=== PATIENT | female | born 1985 | race Caucasian/White ===

== ENCOUNTER 2019-08-04 13:38 | Inpatient (IN) ==
--- NOTE | 2019-08-03 10:51 | PAT Medication Instructions ---
Medication Instructions Date of Service August 03, 2019 Home Medications acetaminophen [Tylenol] 650 mg PO UD PRN diphenhydramine HCl [Benadryl] 25 mg PO HS PRN vit-iron fum-folic ac [ Vitamin] 1 tab PO HS valacyclovir [Valtrex] 500 mg PO HS Take evening before surgery acetaminophen [Tylenol] 650 mg PO UD PRN (if needed) diphenhydramine HCl [Benadryl] 25 mg PO HS PRN vit-iron fum-folic ac [ Vitamin] 1 tab PO HS valacyclovir [Valtrex] 500 mg PO HS THEN NOTHING TO EAT OR DRINK AFTER MIDNIGHT Other Notes If you have any questions please call us at [phone] or [phone] or [phone] or [phone]
--- NOTE | 2019-08-03 11:19 | Anesthesiology Consultation ---
Date of Service August 03, 2019 Assessment & Plan (1) Encounter for pre-operative examination: PLEASE REVIEW PLAN IN PATIENT'S CHART. COVID testing not completed prior to surgery. Patient was initially scheduled to have C/S at later date but was moved up to Wednesday 08/02. Seen in PAT to have test on 08/02. Test will not be resulted in time for C/S on Tuesday. Patient has very low risk travel assessment. Denies travel to endemic area, known exposure/sick contacts, or symptoms of COVID19. L+D made aware. Chart Review Chart Review: Acceptable Risk for Surgery and Patient seen in Pre Admission Testing Consults Requested none Teaching & Discussion Instructed NPO after midnight before surgery, except medications with 15 cc of water. Medication instructions provided according to the PAT guidelines. ASA [id number] Proposed Anesthesia Anesthesia Type: General and Spinal Risk / Benefits Reviewed With: PT / POA / Parent / Guardian, Accepts Plan and Informed Consent Obtained History Surgery Operation Date: 08/06/19 07:30 Proposed Procedures p Section in - Abhilash Tavarez MD Height/Weight Height: 5 ft 3.5 in Weight: 83.7 kg Allergies Allergy/AdvReac Type Severity Reaction Status Date / Time No Known Allergies Allergy Verified 08/01/19 11:56 Medications Home Medications Medication Instructions Recorded Confirmed Last Taken acetaminophen [Tylenol] 650 mg PO UD PRN 08/01/19 08/01/19 Unknown diphenhydramine HCl [Benadryl] 25 mg PO HS PRN 08/01/19 08/01/19 Unknown vit-iron fum-folic ac 1 tab PO HS 08/01/19 08/01/19 Unknown [ Vitamin] valacyclovir [Valtrex] 500 mg PO HS 08/01/19 08/01/19 Unknown NPO Date Last Intake of Fluids: 08/04/19 Time Last Intake of Fluids: 12:00 Date Last Intake of Solids: 08/04/19 Time Last Intake of Solids: 12:00 Past Medical History Medical History Herpes on valtrex History of anemia as a child Exercise / Class Metabolic Activity II 4-5 Yardwork/Stairs/Walk up hill (no cp or SOB with 1 FOS IF NOT ) Past Family History Family History Grandfather (Maternal) Family history of esophageal cancer Other No family history of adverse response to anesthesia Past Surgical History Surgical History History of section History of esophagogastroduodenoscopy (EGD) History of removal of cyst on inside of gum History of tonsillectomy History of wisdom tooth extraction Past Anesthesia History No Hx of Anesthesia Complications and No Family Hx of Anesthesia Complications History of PONV History of PONV and Hx of Motion Sickness Social History Smoking Status: Never smoker Do You Dip or Chew Tobacco: No Hx Alcohol Use: No (prior to ) Alcohol type: beer, wine and hard liquor alcohol intake frequency: a few times a month Alcohol Intake Frequency Comment: HAS NOT HAD ANY ALCOHOL SINCE Hx Substance Use: No substance use type: does not use Review of Systems Pt denies any recent chest pain, shortness of breath, palpitations, cough, fever or URI. Physical Exam Vital Signs Last Vital Signs Pulse 83 08/04/19 13:44 BP 132/72 08/04/19 13:44 BP: 116/73 P: 84bpm SPO2: 98% RA T: 98.7 F R: 16 Constitutional + obese ENMT Mouth: + chipped teeth (few in front); no dentition abnormality, no dental restorations and no loose teeth Thyromental Distance: < 3.5 Finger Breadths (4) Mallampati Class: II Neck normal visual inspection; neck extension not limited Respiratory normal respiratory effort Auscultation: lungs clear to auscultation bilaterally Cardiovascular Rate/Rhythm: regular rate and regular rhythm Heart Sounds: no murmur Vessels: no carotid bruit Extremities: no edema Musculoskeletal Spine: lumbar spine normal to inspection; normal cervical ROM Extremities: extremities normal to inspection Neurologic moves all extremities Motor/Sensory: no sensory deficit Psychiatric Orientation: alert and oriented x 3 Testing Laboratory Results 08/03/19 11:10 08/03/19 11:30 PT 9.8 Seconds (9.0-12.0) 08/03/19 11:10 INR 0.9 (0.9-1.1) 08/03/19 11:10 APTT 26.6 Seconds (21.0-31.0) 08/03/19 11:10 Blood Type O Positive 08/03/19 11:30 Antibody Screen NEGATIVE 08/03/19 11:30
[2019-08-03 13:03] LABS: Basophils # (auto) 0.01 K/uL (0-0.2); Basophils % (auto) 0.1 %; Eosinophils # (auto) 0.11 K/uL (0-0.5); Eosinophils % (auto) 1.5 %; Hematocrit (blood only) 36.8 % (37-47); Hemoglobin 12.2 g/dL (12.0-16.0); Immature Granulocytes # (auto) 0.03 K/uL (0.00-0.02); Immature Granulocytes % (auto) 0.4 %; Lymphocytes # (auto) 1.63 K/uL (1.2-3.4); Lymphocytes % (auto) 21.6 %; Mean Corpuscular Hemoglobin 29.8 pg (25-34); Mean Corpuscular Hgb Conc 33.2 g/dL (32-36); Mean Corpuscular Volume 89.8 fL (80-100); Mean Platelet Volume 10.3 fL (7.4-10.4); Monocytes # (auto) 0.68 K/uL (0.11-0.59); Neutrophils # (auto) 5.08 K/uL (1.4-6.5); Neutrophils % (auto) 67.4 %; Platelet Count 253 K/uL (130-400); RDW Coefficient of Variation 14.1 % (11.5-14.5); RDW Standard Deviation 46.1 fL (36.4-46.3); White Blood Count 7.54 K/uL (4.8-10.8)
[2019-08-03 13:16] LABS: INR 0.9 (0.9-1.1); Partial Thromboplastin Time 26.6 Seconds (21.0-31.0); Prothrombin Time 9.8 Seconds (9.0-12.0)
[2019-08-03 13:39] LABS: BUN Creatinine Ratio 18.8 (10-20); Calcium 8.9 mg/dl (8.5-10.1); Creatinine Clr Calc Pharmacy 174.7 ml/min; Est GFR (African American) 149.4; Est GFR (Non-African American) 128.9; Potassium 3.8 mmol/L (3.5-5.1)
[~2019-08-04 13:38] MED LIST: CITRIC ACID/SODIUM CITRATE 15 ML UDC PO SCH; cefOXitin 2,000 MG in DEXTROSE 5% 50 ML IV SCH
[2019-08-04] MEDS ORDERED: LACTATED RINGER'S 1,000 ML IV SCH ×2 (13:45→16:00)
[2019-08-04 14:00] LABS: Basophils # (auto) 0.01 K/uL (0-0.2); Basophils % (auto) 0.1 %; Eosinophils # (auto) 0.07 K/uL (0-0.5); Eosinophils % (auto) 0.9 %; Hematocrit (blood only) 35.9 % (37-47); Hemoglobin 11.7 g/dL (12.0-16.0); Immature Granulocytes # (auto) 0.03 K/uL (0.00-0.02); Immature Granulocytes % (auto) 0.4 %; Lymphocytes # (auto) 1.55 K/uL (1.2-3.4); Lymphocytes % (auto) 20.8 %; Mean Corpuscular Hemoglobin 29.5 pg (25-34); Mean Corpuscular Volume 90.4 fL (80-100); Mean Platelet Volume 9.9 fL (7.4-10.4); Monocytes # (auto) 0.63 K/uL (0.11-0.59); Monocytes % (auto) 8.5 %; Neutrophils # (auto) 5.16 K/uL (1.4-6.5); Neutrophils % (auto) 69.3 %; Platelet Count 265 K/uL (130-400); RDW Coefficient of Variation 14.1 % (11.5-14.5); RDW Standard Deviation 46.2 fL (36.4-46.3); Red Blood Count 3.97 M/uL (4.2-5.4); White Blood Count 7.45 K/uL (4.8-10.8)
[2019-08-04] MEDS ORDERED: fentaNYL citrate 100 MCG/2 ML VIAL ONE (14:05)
[2019-08-04] MEDS ORDERED: MoRPHine SULFATE PF 1 MG/ML 10 ML AMP/VIAL ONE (14:06)
[2019-08-04] MEDS ORDERED: OXYTOCIN 10 UNITS/ML VIAL ONE (14:07)
[2019-08-04 14:24] LABS: Mean Corpuscular Hgb Conc 32.6 g/dL (32-36)
[2019-08-04] MEDS ORDERED: PHENYLEPHRINE 100MCG/ML 5ML SYR ONE (15:12)
[2019-08-04 15:29] LABS: Base Excess Cord Arterial Bld -0.3 mEq/L (-9-1.8); CO2 Cord Arterial Blood 47 mmHg (39.1-73.5); HCO3 Cord Arterial Blood 26 mmol/L (19.7-28.5); PO2 Cord Arterial Blood 27 mmHg (4.1-31.7); pH Cord Arterial Blood 7.36 (7.1-7.38)
--- NOTE | 2019-08-04 15:42 | History and Physical Report ---
DATE OF ADMISSION: 08/04/2019 CHIEF COMPLAINT: Mirtha ruptured membranes, breech presentation, intrauterine at 38 weeks 5 days. HISTORY OF PRESENT ILLNESS: The patient is a 34-year-old 2, para 1. General health is good. She has had an uneventful course except for the fact that the infant is in breech position. Her first child was born in 2017 at about 37 weeks, for breech presentation. At the time of surgery, she was told she had a heart-shaped uterus. Present has been uneventful. She has been well dated with a first trimester ultrasound. Her due date is 08/13/2019. We checked for breech presentation at about 36 weeks. This presentation was confirmed by ultrasound. She has had 1 or 2 ultrasound since then and has remained in a breech presentation and she had a bedside ultrasound on the day she was admitted for , which confirmed that the head was in the upper left quadrant of the abdomen. She also had mirtha ruptured membranes with fluid running down her leg. PAST MEDICAL HISTORY: She has a girl, 5 years old, in good health. No history of rheumatic fever, heart disease, heart murmur, diabetes, tuberculosis. ALLERGIES: No known drug allergies. PAST SURGICAL HISTORY: Had a , had a tonsillectomy and adenoidectomy. SOCIAL HISTORY: No smoking, no alcohol intake when she is . 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 FAMILY HISTORY: Mom, 64, in good health. Father, 66, in good health. One brother in good health. REVIEW OF SYSTEMS: HEAD: No symptoms of frequent or severe headaches. EYES: No symptoms of blurred vision, double vision. EARS: No symptoms of frequent ear infections, difficulty hearing. NOSE: No symptoms of frequent nosebleeds, difficulty breathing through her nose. THROAT: No symptoms of frequent or severe sore throats, difficulty swallowing. RESPIRATORY SYSTEM: No history of asthma, chest pain, shortness of breath. PHYSICAL EXAMINATION: GENERAL: Well-developed, well-nourished 34-year-old white female, alert, oriented x3 and cooperative, in no acute distress, appeared her stated age. EYES: Conjunctivae are pink. Sclerae white. No evidence of jaundice. EARS: Had normal light reflex bilaterally. HEART: Had regular rhythm. S1, S2 are normal. LUNGS: Clear to auscultation and percussion. ABDOMEN: Soft and nontender, consistent in size with a term size fetus. Vertex was ballotable left upper quadrant of the abdomen. MUSCULOSKELETAL: Revealed no calf tenderness. VAGINAL: Revealed mirtha ruptured membranes. IMPRESSIONS OF THIS CASE: History of heart-shaped uterus, status post tonsillectomy and adenoidectomy, status post previous for breech presentation, ruptured membranes, breech presentation at 38 weeks 5 days.
--- NOTE | 2019-08-04 15:45 | Post Operative Brief Note ---
Immediate Post Op Note v1 Date of Surgery August 04, 2019 Pre & Post Diagnosis Operation Date: 08/04/19 14:25 Pre-Op Diagnosis: 1. Term 2. Breech presentation 3. Rupture of Membranes Post-Op Diagnosis: Same Operation Date: 08/06/19 07:30 <No data on this case meets the specified criteria> I identified the patient and participated in the time-out.: Yes Procedure Operation Date: 08/04/19 14:25 Actual Procedures p Section in LD - Abhilash Tavarez MD Operation Date: 08/06/19 07:30 <No data on this case meets the specified criteria> Surgeon Abhilash Tavarez MD Digital Sales Assistant Dr Houston Estimated Blood Loss 600 Findings Consistent with Post-Op Diagnosis Fluids 1500 ml Specimens placenta Drains Collins Catheter (placed following spinal placement; clear yellow urine noted upon insertion. ) Anesthesia Type Spinal Disposition Accompanied Patient To Recovery: No Disposition: Recovery Room
[2019-08-04] MEDS ORDERED: MAGNESIUM HYDROXIDE SUSP 30 ML UDC PO PRN (15:46)
[2019-08-04] MEDS ORDERED: HYDROCORTISONE ACETATE 25 MG SUPP PR PRN (15:46)
[2019-08-04] MEDS ORDERED: DIPHTHERIA/TETANUS/PERTUSSIS 0.5 ML SYR/VIAL IM ONE (15:46)
[2019-08-04] MEDS ORDERED: SUPERCREAM 0.870% 15 GM JAR EXT PRN (15:46)
[2019-08-04] MEDS ORDERED: BENZOCAINE 20% AER SPR 82.5 GM CAN EXT PRN (15:46)
[2019-08-04] MEDS ORDERED: SENNA 8.6 MG TAB PO PRN (15:46)
[2019-08-04 15:47] LABS: Base Excess Cord Venous Blood -0.7 mEq/L (-7.7-1.9); Cord Venous Blood HCO3 25 mmol/L (18.4-26.8); Cord Venous Blood PCO2 45 mmHg (30.4-57.2); Cord Venous Blood PO2 32 mmHg (14.1-43.3); Cord Venous Blood pH 7.36 (7.20-7.44)
--- NOTE | 2019-08-04 15:52 | Communication Note ---
Date of Service: August 04, 2019 rapid covid test-negative
[2019-08-04] MEDS ORDERED: DiphenhydrAMINE HCL 50 MG/ML VIAL IV PRN (15:53)
[2019-08-04] MEDS ORDERED: ONDANSETRON INJ 2 MG/ML 2 ML VIAL IV PRN (15:53)
[2019-08-04] MEDS ORDERED: NALOXONE HCL 0.4 MG/1 ML VIAL/CARP IV PRN (15:53)
[2019-08-04] MEDS ORDERED: PROMETHAZINE HCL 25 MG in SODIUM CHLORIDE 0.9% 50 ML IV PRN (15:53)
[2019-08-04] MEDS ORDERED: ePHEDrine sulfate 50 MG/ML AMP IV PRN (15:53)
[2019-08-04] MEDS ORDERED: NALBUPHINE HCL INJ 10 MG/ML AMP IV PRN (15:53)
[2019-08-04] MEDS ORDERED: MoRPHine SULFATE PF 1 MG/ML 10 ML AMP/VIAL INT SPINAL ONE (15:53)
[2019-08-04] MEDS ORDERED: LACTATED RINGER'S 500 ML IV PRN (15:53)
[2019-08-04] MEDS ORDERED: NALOXONE HCL 0.08 MG in SYRINGE 1.8 ML IV PRN (15:53)
[2019-08-04] MEDS ORDERED: NALOXONE HCL 1 MG in SODIUM CHLORIDE 0.9% 1000ML 1,000 ML IV PRN (15:53)
[2019-08-04] MEDS ORDERED: DC INTRASPINAL MORPHINE SCH (16:00)
[2019-08-04] MEDS ORDERED: SODIUM CHLORIDE 0.9% 1000ML 1,000 ML IV SCH (16:00)
[2019-08-04] MEDS ORDERED: NO NARCOTICS OR SEDATIVES SCH (16:00)
[2019-08-04] MEDS: KETOROLAC 30 MG/ML VIAL IV PRN ×2 (17:29→23:38)
[2019-08-04] MEDS ORDERED: ARISTA ABSORBABLE HEMOSTAT 3GM TOP ONE (17:44)
[2019-08-04] MEDS ORDERED: OXYTOCIN 10 UNITS/ML VIAL IM ONE (17:44)
[2019-08-04] MEDS: SIMETHICONE 80 MG CHEW PO SCH ×2 (17:46→21:38)
[2019-08-04] MEDS: OXYTOCIN 20 UNITS in LACTATED RINGER'S 1,000 ML IV SCH (18:35)
[2019-08-04] MEDS: DOCUSATE SODIUM 100 MG CAP PO SCH (21:37)
[2019-08-05] MEDS: OXYTOCIN 20 UNITS in LACTATED RINGER'S 1,000 ML IV SCH (02:01)
[2019-08-05 06:01] LABS: Basophils # (auto) 0.01 K/uL (0-0.2); Basophils % (auto) 0.1 %; Eosinophils # (auto) 0.04 K/uL (0-0.5); Eosinophils % (auto) 0.3 %; Hematocrit (blood only) 30.7 % (37-47); Hemoglobin 10.2 g/dL (12.0-16.0); Immature Granulocytes # (auto) 0.03 K/uL (0.00-0.02); Immature Granulocytes % (auto) 0.3 %; Lymphocytes % (auto) 15.6 %; Mean Corpuscular Hemoglobin 29.5 pg (25-34); Mean Corpuscular Hgb Conc 33.2 g/dL (32-36); Mean Corpuscular Volume 88.7 fL (80-100); Mean Platelet Volume 9.5 fL (7.4-10.4); Monocytes # (auto) 0.97 K/uL (0.11-0.59); Monocytes % (auto) 8.4 %; Neutrophils % (auto) 75.3 %; Platelet Count 198 K/uL (130-400); RDW Standard Deviation 45.4 fL (36.4-46.3); Red Blood Count 3.46 M/uL (4.2-5.4); White Blood Count 11.55 K/uL (4.8-10.8)
[2019-08-05] MEDS ORDERED: LACTATED RINGER'S 500 ML IV ONE (06:26)
[2019-08-05] MEDS: KETOROLAC 30 MG/ML VIAL IV PRN (08:28)
[2019-08-05] MEDS: SIMETHICONE 80 MG CHEW PO SCH ×4 (08:29→20:42)
[2019-08-05] MEDS: PRENATAL VITAMIN 1 TAB PO SCH (08:29)
[2019-08-05] MEDS: DOCUSATE SODIUM 100 MG CAP PO SCH ×2 (08:29→20:42)
[2019-08-05] MEDS: FERROUS SULFATE 325 MG TAB PO SCH (08:29)
[2019-08-05] MEDS ORDERED: ONDANSETRON INJ 2 MG/ML 2 ML VIAL IV PRN (09:53)
[2019-08-05] MEDS ORDERED: ZOLPIDEM TARTRATE 5 MG TAB PO PRN (09:53)
[2019-08-05] MEDS ORDERED: DiphenhydrAMINE HCL 50 MG/ML VIAL IV PRN (09:53)
[2019-08-05] MEDS ORDERED: MEPERIDINE HCL 50 MG/ML CARP IV PRN (09:53)
[2019-08-05] MEDS ORDERED: KETOROLAC 30 MG/ML VIAL IV PRN (09:53)
[2019-08-05] MEDS ORDERED: OXYCODONE/ACETAMINOPHEN 5mg/325mg TAB PO PRN (09:53)
[2019-08-05] MEDS ORDERED: PROMETHAZINE HCL 25 MG in SODIUM CHLORIDE 0.9% 50 ML IV PRN (09:53)
--- NOTE | 2019-08-05 11:04 | Obstetrical Progress Note ---
Date of Service August 05, 2019 Assessment & Plan Admission and Anticipated Discharge Date Admission Date: August 04, 2019 Physical Exam Physical Exam: abdomen soft and non tender bandage removed incision is clean and dry no calf tenderness passing flatus vaginal bleeding scant hgb 10.2 ambulating well Results & Data ([facility]) Vital Signs (Past 12 Hours) Vital Signs Temp Pulse Pulse Resp BP Pulse Ox 08/05/19 09:45 18 97 08/05/19 08:40 18 96 08/05/19 07:40 37.1 C 74 18 104/61 97 08/05/19 05:25 16 94 08/05/19 04:20 36.7 C 73 18 96/57 L 96 08/05/19 03:17 18 96 08/05/19 02:00 18 98 08/05/19 01:05 18 98 08/05/19 00:15 20 97 08/04/19 23:55 36.9 C 70 18 102/54 L 96 08/04/19 23:05 20 98
[2019-08-05] MEDS: IBUPROFEN 600 MG TAB PO PRN ×3 (13:39→23:32)
[2019-08-05] MEDS: ACETAMINOPHEN 325 MG TAB PO PRN ×2 (15:54→22:16)
[2019-08-05] MEDS ORDERED: bisacodyL 5 MG TABEC PO SCH (20:00)
[2019-08-06 05:55] LABS: Hematocrit (blood only) 33.1 % (37-47); Hemoglobin 10.9 g/dL (12.0-16.0)
[2019-08-06] MEDS ORDERED: COUGH DROP (SUGAR FREE) LOZ 24 LOZ/1 BOX BUCCAL PRN (05:56)
[2019-08-06] MEDS: ACETAMINOPHEN 325 MG TAB PO PRN (05:59)
[2019-08-06] MEDS: FERROUS SULFATE 325 MG TAB PO SCH (07:31)
[2019-08-06] MEDS: SIMETHICONE 80 MG CHEW PO SCH (07:31)
[2019-08-06] MEDS: PRENATAL VITAMIN 1 TAB PO SCH (07:31)
[2019-08-06] MEDS: IBUPROFEN 600 MG TAB PO PRN (07:31)
[2019-08-06] MEDS: DOCUSATE SODIUM 100 MG CAP PO SCH (07:31)
--- NOTE | 2019-08-06 08:00 | Operative Report (OR) ---
DATE OF OPERATION: 08/04/2019 PROCEDURE: Repeat low segment section. INDICATIONS FOR SURGERY: Mirtha rupture of membranes, breech presentation. PREOPERATIVE DIAGNOSES: Breech presentation, mirtha rupture of membranes, previous section. POSTOPERATIVE DIAGNOSES: Breech presentation, mirtha rupture of membranes, previous section. Pathology pending. Delivered a live female infant. Nuchal cord x3. SURGEON: Joni Tavarez MD INSULATING MACHINE OPERATOR: Dr. Houston. ESTIMATED BLOOD LOSS: 600 mL. ANESTHESIA: Spinal. OPERATIVE FINDINGS AND PROCEDURE: The patient was brought to the OR table, correctly identified by armband and conversation. Spinal anesthesia was administered. Compression stockings were applied. Collins catheter was inserted into the bladder. Lower abdomen was painted with an alcohol based sterilizing solution, draped in the usual sterile fashion. Pfannenstiel was then made after testing the anesthesia and doing the timeout. Incision was made, carried down to the anterior fascia by sharp dissection. Hemostasis was secured by electrocauterization. Fascia was incised transversely it from the underlying muscle by blunt and sharp dissection. Recti muscles were in the midline exposing the peritoneum which was carefully raised and entered. We made a generous incision with good lower uterine exposure. I palpated a mirtha breech presentation and scored the uterus about 3-4 cm above the lowest portion of the breech. I scored the uterus and then entered bluntly with the scissors and extended the scissors laterally. At this time, there was essentially no amniotic fluid. I was able to grasp breech at the hips and then with fundal pressure basically delivered the first reducing each of the legs, then turning it sideways reducing the left arm, then right arm, then with fundal pressure we delivered the head. There was a tight nuchal cord which was wrapped around the head 3 times. We unwound the cord and stripped some of the cord blood, clamped and cut it, and handed the infant to the manager of it, Dr. Blanco, who was scrubbed and present at the time of delivery. Cord blood was taken, cord gases were taken. The placenta was then removed manually. Uterus, tubes, and ovaries were brought out through the incision. She had a heart-shaped uterus with a fairly good sized septum. The was held in the left portion of the uterus. After thoroughly wiping clean the entire uterine cavity, we grasped the edges of the myometrial defect and did a careful anatomical approximation, first approximating the muscular layer with a continuous interlocking suture of chromic catgut, injecting 10 units of Pitocin into the myometrium and then approximating the fascial layer over this with continuous interlocking suture of heavy Vicryl. Following this, hemostasis was good. We had a small jennifer in the vessel in the broad ligament on the patient's left side and we controlled the bleeding with 3-0 chromic placed in a running fashion, two layers, and put some clotting powder over it. At the time we closed, hemostasis was excellent. The pelvis was then cleansed of all blood clots and debris. Uterus, tubes, and ovaries were reinserted into the pelvic cavity. We checked to make sure everything was hemostatically good, it was. We then did a careful anatomical approximation of the anterior abdominal wall. Peritoneum was closed with a mattress suture of chromic catgut. Recti muscles were approximated with interrupted [id number] suture, chromic catgut. The fascia was closed with a continuous interlocking suture of Vicryl on each side, tied in the midline. SubQ was approximated with a running plain and skin edges were approximated with staple clips. I attest to the content of the Intraoperative Record and any orders documented therein. Any exception s are noted below.
--- NOTE | 2019-08-06 08:13 | Communication Note ---
Date of Service: August 06, 2019 No c/o H/A,low back pain,or LE weakness or paresthesias.
--- NOTE | 2019-08-06 09:30 | Obstetrical Progress Note ---
Date of Service August 06, 2019 Assessment & Plan Admission and Anticipated Discharge Date Admission Date: August 04, 2019 Physical Exam Physical Exam: abdomen soft and non tender incision is clean and dry no calf tenderness ambulating well vaginal bleeding scant hgb 10.9 Results & Data ([facility]) Vital Signs (Past 12 Hours) Vital Signs Temp Pulse Pulse Resp BP Pulse Ox 08/06/19 07:35 36.5 C 79 18 125/79 97 08/05/19 23:05 36.6 C 74 16 112/68 97
--- NOTE | 2019-08-06 10:30 | Discharge Summary (DS) ---
DATE OF DISCHARGE: 08/06/2019 Mrs. Earl has been followed in our office for care and delivery. She had a previous section for breech presentation at 37 weeks gestation. At that time, she was found to have a heart-shaped uterus with a partial septum. Present was uneventful. The baby occupied the left side of the uterus in the left compartment. It remained breech throughout her whole , was confirmed several times by vag exam and ultrasound. She was scheduled for repeat section on Tuesday at 39 weeks. She called Tuesday with mirtha rupture of membranes. She was subsequently admitted, given prophylactic antibiotics, taken to the OR where she underwent repeat low segment section. At the time of , there was essentially no amniotic fluid present. was done without any significant problems. Her preoperative hemoglobin was 11.7. Postoperatively, hemoglobin fell to 10.9. She remained afebrile throughout her postoperative course. Her bowel sounds returned within 24 hours. On the second postoperative day, she was ambulating well. She was eating well. She was afebrile. Her incision was clean and dry. Her pain was controlled with nonnarcotic pain medications and she requested discharge. She was discharged to the home and office and told to return for removal of neftali.
[2019-08-06] MEDS ORDERED: bisacodyL 10 MG SUPP PR PRN (15:47)
== END 2019-08-06 11:15 | disposition home or self-care (01) | DRG 788 ==
LOC: 4S1 13:38 → 4S2 19:59 → EDSTATUS 08-15 07:30